=== PATIENT | male | born 1985 | race African-American/Black ===

== ENCOUNTER 2017-05-08 09:28 | Emergency (ER) | payer OTHER ==
[~2017-05-08] VITALS: Ht 175.3 cm; Wt 109.1 kg
[2017-05-08 09:29] VITALS: BP 159/92
[2017-05-08] MEDS ORDERED: PLAV1TAB2 PO (09:40)
[2017-05-08] MEDS ORDERED: LOPR1TAB6 PO (09:40)
[2017-05-08] MEDS ORDERED: LISI10TA4 PO (09:41)
[2017-05-08] MEDS ORDERED: ASPI1TAB PO (09:41)
--- NOTE | 2017-05-08 10:20 | REP ---
Left great toe four views : There is no fracture or dislocation. Mineralization and joint spaces are normal. There are no calcifications or foreign bodies. Impression: Negative left great toe . Signed by Emre Fairchild MD 05/08/2017 10:10 A
== END 2017-05-08 10:46 | disposition home or self-care (01) ==
LOC: M ED 09:28
DX: S90.222A Contusion of left lesser toe(s) with damage to nail, initial encounter (principal); S90.112A Contusion of left great toe without damage to nail, initial encounter; X58.XXXA Exposure to other specified factors, initial encounter; Y92.099 Unspecified place in other non-institutional residence as the place of occurrence of the external cause; Y93.9 Activity, unspecified; Y99.9 Unspecified external cause status; I25.10 Atherosclerotic heart disease of native coronary artery without angina pectoris; I25.2 Old myocardial infarction; Z79.82 Long term (current) use of aspirin; Z79.899 Other long term (current) drug therapy